=== PATIENT | male | born 1990 | race Two or more races ===

== ENCOUNTER 2017-10-02 20:21 | Emergency (ER) | payer OTHER ==
[~2017-10-02] VITALS: Ht 170.2 cm; Wt 131.5 kg
[2017-10-02] MEDS ORDERED: ALBUTEROL SULF 2.5 MG/0.5ML(0.5%) NEB SOLN NEB ONE (20:30)
[2017-10-02] MEDS ORDERED: IPRATROPIUM BROM 0.5 MG/2.5ML INH SOL NEB ONE (20:30)
[2017-10-02] MEDS ORDERED: ALBUTEROL SULF 2.5 MG/0.5ML(0.5%) NEB SOLN ONE (20:41)
[2017-10-02] MEDS ORDERED: IPRATROPIUM BROM 0.5 MG/2.5ML INH SOL ONE (20:41)
[2017-10-02] MEDS ORDERED: ALBUTEROL SULF 2.5 MG/0.5ML(0.5%) NEB SOLN HHN ONE (21:00)
[2017-10-02] MEDS ORDERED: methylPREDNISolone SOD SUCC 125 MG/2 ML VL IV ONE (21:00)
[2017-10-02] MEDS ORDERED: IPRATROPIUM BROM 0.5 MG/2.5ML INH SOL HHN ONE (21:00)
[2017-10-02 21:13] VITALS: BP 155/71
[2017-10-02 21:15] LABS: Basophils # (auto) 0 uL; Basophils % (auto) 0.4 % (0.0-2.0); Eosinophils # (auto) 0.3 uL; Eosinophils % (auto) 2.3 % (0.0-7.0); Hematocrit 47.1 % (41.0-53.0); Hemoglobin 15.9 g/dL (13.5-17.5); Lymphocytes # (auto) 1.6 uL; Lymphocytes % (auto) 13.2 % (10.0-50.0); Mean Corpuscular Hemoglobin 28.4 pg (28.0-32.0); Mean Corpuscular Hgb Conc. 33.8 g/dL (32.0-36.0); Mean Corpuscular Volume 84.2 fL (80.0-100.0); Monocytes # (auto) 0.9 uL; Neutrophils # (auto) 9.6 uL; Neutrophils % (auto) 77.1 % (37.0-80.0); Nucleated Red Blood Cells % 0.1 %; Platelet Count (auto) 204 10^3/uL (140-450); Red Cell Distribution Width 14.2 % (11.8-14.3); White Blood Cell 12.4 10^3/uL (4.4-10.8)
[2017-10-02 21:33] LABS: Potassium 3.5 mmol/L (3.5-5.1)
[2017-10-02 21:34] LABS: BUN/Creatinine Ratio 10.9
[2017-10-02 21:35] LABS: Albumin 3.3 g/dL (3.4-5.0); Bilirubin, Total 0.3 mg/dL (0.2-1.0); Total Protein 7.7 g/dL (6.4-8.2)
== END 2017-10-02 23:38 | disposition home or self-care (01) ==
LOC: EDBD 20:21 → ER 20:21
DX: J45.901 Unspecified asthma with (acute) exacerbation (principal)
CPT/HCPCS: 36415; 71046; 80053; 85025; 94640; 94644; 94761; 96374; 99285; J2930

== ENCOUNTER 2018-05-30 20:27 | Emergency (ER) | payer SELFPAY ==
[~2018-05-30] VITALS: Ht 170.2 cm; Wt 90.7 kg
[2018-05-30] MEDS ORDERED: TETANUS-DIPTH-ACEL PERTUSSIS 0.5ML SYRG IM ONE (22:15)
[2018-05-30 22:35] VITALS: BP 136/79
== END 2018-05-30 22:37 | disposition home or self-care (01) ==
LOC: ER 20:27
DX: S61.254A Open bite of right ring finger without damage to nail, initial encounter (principal); S61.256A Open bite of right little finger without damage to nail, initial encounter; W54.0XXA Bitten by dog, initial encounter; Y93.89 Activity, other specified; Y99.8 Other external cause status; Y92.89 Other specified places as the place of occurrence of the external cause
CPT/HCPCS: 90471; 90715

== ENCOUNTER 2019-09-12 20:50 | Emergency (ER) | payer SELFPAY ==
[~2019-09-12] VITALS: Ht 170.2 cm; Wt 136.1 kg
[2019-09-12 21:07] VITALS: BP 151/98
[2019-09-12] MEDS ORDERED: ALBUTEROL SULF 2.5 MG/0.5ML(0.5%) NEB SOLN NEB ONE (21:15)
[2019-09-12] MEDS ORDERED: IPRATROPIUM BROM 0.5 MG/2.5ML INH SOL NEB ONE (21:15)
[2019-09-12] MEDS ORDERED: ACETAMINOPHEN/CODEINE#3 (300/30mg) TAB ONE (23:19)
[2019-09-12] MEDS ORDERED: DexAMETHasone SOD PHOS 10MG/1ML VIAL INJ ONE (23:20)
== END 2019-09-13 05:06 | disposition home or self-care (01) ==
LOC: ER 20:52
DX: J45.909 Unspecified asthma, uncomplicated (principal)
CPT/HCPCS: 94640; 99283; J1100; J7611; J7644